=== PATIENT | male | born 2000 | race Caucasian/White ===

== ENCOUNTER 2024-04-08 20:12 | Inpatient (IN) | payer OTHER ==
[2024-04-08 20:35] VITALS: BMI 23.7
[2024-04-08] MEDS ORDERED: NICOTINE POLACRILEX 4 MG GUM BUC PRN (21:27)
[2024-04-08] MEDS ORDERED: MAGNESIUM HYDROX 2400MG/30ML ORAL SUSPENSION 30 ML CUP PO PRN (21:27)
[2024-04-08] MEDS ORDERED: BENZOCAINE/MENTHOL (CHLORASEPTIC ) LOZENGE MM PRN (21:27)
[2024-04-08] MEDS ORDERED: BISMUTH SUBSALICYLATE 524 MG/30 ML PO PRN (21:27)
[2024-04-08] MEDS ORDERED: ONDANSETRON *ODT* 4 MG TABLET SL PRN (21:27)
[2024-04-08] MEDS ORDERED: guaiFENesin 600 MG TABLET.ER (FP) PO PRN (21:27)
[2024-04-08] MEDS ORDERED: LOPERAMIDE HCL 2 MG CAPSULE PO PRN (21:27)
[2024-04-08] MEDS ORDERED: DICYCLOMINE HCL 10 MG CAPSULE PO PRN (21:27)
[2024-04-08] MEDS ORDERED: NALOXONE (NARCAN) HCL 4 MG/0.1 ML SPRAY NS PRN (21:27)
[2024-04-08] MEDS ORDERED: POLYETHYLENE GLYCOL (HEALTHYLAX) 3350 17 GM PACKET PO PRN (21:27)
[2024-04-08] MEDS ORDERED: BENZONATATE 200 MG CAPSULE PO PRN (21:27)
[2024-04-08] MEDS ORDERED: ACETAMINOPHEN 325 MG TABLET (FP) PO PRN (21:27)
[2024-04-08] MEDS ORDERED: NALOXONE HCL 0.4 MG/ML VIAL IM PRN (21:27)
[2024-04-08] MEDS ORDERED: MAG HYDROX/AL HYDROX/SIMETH 30 ML UNIT-DOSE CUP PO PRN (21:27)
[2024-04-08] MEDS: CEPHALEXIN MONOHYDRATE 500 MG CAPSULE (UD) PO SCH (22:48)
[2024-04-08] MEDS: THIAMINE 100 MG TABLET PO SCH (22:48)
[2024-04-09] MEDS: PRENATAL VITAMINS W/ FOLIC ACID TABLET (FP) PO SCH (10:20)
[2024-04-09] MEDS: chlordiazePOXIDE HCL 25 MG CAPSULE PO SCH (10:20)
[2024-04-09] MEDS: NICOTINE 21 MG/24 HOURS TOPICAL PATCH TD SCH (10:26)
[2024-04-09] MEDS: methaDONE HCL 10 MG TABLET PO ONE (11:03)
[2024-04-09] MEDS: FLUoxetine HCL 10 MG TABLET PO SCH (12:30)
[2024-04-09] MEDS: cloNIDine HCL 0.1 MG TABLET PO SCH (14:45)
[2024-04-09] MEDS: QUEtiapine FUMARATE 200 MG TABLET PO SCH (22:25)
[2024-04-09] MEDS: IBUPROFEN 400 MG TABLET (FP) PO PRN (23:08)
[2024-04-09] MEDS: methaDONE HCL 10 MG TABLET PO PRN (23:09)
[2024-04-10] MEDS: methaDONE 40 MG, methaDONE 10 MG PO ONE (10:00)
[2024-04-10] MEDS: IBUPROFEN 600 MG TABLET (FP) PO PRN (10:01)
[2024-04-10] MEDS: chlordiazePOXIDE HCL 25 MG CAPSULE PO SCH (10:06)
[2024-04-10] MEDS: BENZOCAINE 20 % GEL TUBE MM PRN (10:21)
[2024-04-10] MEDS: chlordiazePOXIDE HCL 25 MG CAPSULE PO PRN (14:57)
[2024-04-11] MEDS: methaDONE 40 MG, methaDONE 20 MG PO ONE (10:19)
[2024-04-11] MEDS: chlordiazePOXIDE HCL 10 MG CAPSULE PO SCH (10:23)
[2024-04-12] MEDS: chlordiazePOXIDE HCL 10 MG CAPSULE PO SCH (05:59)
[2024-04-12] MEDS: methaDONE 40 MG, methaDONE 30 MG PO ONE (09:07)
[2024-04-12] MEDS: chlordiazePOXIDE HCL 10 MG CAPSULE PO PRN (09:11)
[2024-04-12 14:59] LABS: HEMATOCRIT 38.1 % (35.4-49); HEMOGLOBIN 12.2 GM/dL (11.7-16.9); MCH 26.8 pg (25.7-33.7); MCHC 32.1 g/dl (32.0-35.9); MEAN CELL VOLUME 83.5 fl (80-96); MEAN PLT VOLUME 7.9 fl (7.5-11.1); PLATELET COUNT 239 10^3/uL (134-434); POTASSIUM 4.6 mmol/L (3.5-5.1); RBC 4.56 M/mm3 (4.00-5.60); RDW 16.8 % (11.9-15.9); WHITE BLOOD COUNT 6.1 K/mm3 (4.0-10.0)
[2024-04-12 15:05] LABS: BLOOD UREA NITROGEN 21.6 mg/dL (7-18); CALCIUM 9.5 mg/dL (8.5-10.1)
[2024-04-12 15:09] LABS: CREATININE 0.9 mg/dL (0.55-1.3)
[2024-04-12 15:10] LABS: BILIRUBIN,TOTAL 0.8 mg/dL (0.2-1); TOT PROT 7.5 g/dl (6.4-8.2)
[2024-04-13] MEDS: chlordiazePOXIDE HCL 10 MG CAPSULE PO ONE ×2 (05:46→07:46)
[2024-04-13] MEDS: methaDONE HCL 40 MG DISPERSABLE TABLET PO ONE (07:06)
[2024-04-13 09:14] VITALS: BP 128/76; PULSE 98; RESP 16; TEMP 97.3
[2024-04-13] MEDS: FLUoxetine HCL 10 MG CAPSULE PO SCH (09:18)
[2024-04-13] MEDS ORDERED: methaDONE HCL 40 MG DISPERSABLE TABLET PO ONE (10:00)
[2024-04-14] MEDS ORDERED: methaDONE 80 MG, methaDONE 10 MG PO ONE (10:00)
== END 2024-04-13 10:49 | disposition home or self-care (01) | DRG 773 ==
LOC: YASAS 20:12 → Y6N 21:49
PROVIDERS: ADMIT Allergy & Immunology; ATTEND Surgery
PROC: HZ2ZZZZ Detoxification Services for Substance Abuse Treatment (ICD-10-PCS; principal; 2024-04-08)
DX: F11.23 Opioid dependence with withdrawal (principal); F10.230 Alcohol dependence with withdrawal, uncomplicated; F14.20 Cocaine dependence, uncomplicated; F13.20 Sedative, hypnotic or anxiolytic dependence, uncomplicated; F17.210 Nicotine dependence, cigarettes, uncomplicated; F19.280 Other psychoactive substance dependence with psychoactive substance-induced anxiety disorder; F25.1 Schizoaffective disorder, depressive type; F31.9 Bipolar disorder, unspecified; F19.24 Other psychoactive substance dependence with psychoactive substance-induced mood disorder; L03.115 Cellulitis of right lower limb
CPT/HCPCS: 36415; 80053; 80305; 80307; 85027; 86780; 87635; 93005; 93010

== ENCOUNTER 2024-04-14 16:33 | Inpatient (IN) | payer OTHER ==
[2024-04-14 17:40] VITALS: BMI 24.0
[2024-04-14] MEDS ORDERED: BISMUTH SUBSALICYLATE 524 MG/30 ML PO PRN (22:30)
[2024-04-14] MEDS ORDERED: NALOXONE (NARCAN) HCL 4 MG/0.1 ML SPRAY NS PRN (22:30)
[2024-04-14] MEDS ORDERED: MAGNESIUM HYDROX 2400MG/30ML ORAL SUSPENSION 30 ML CUP PO PRN (22:30)
[2024-04-14] MEDS ORDERED: MAG HYDROX/AL HYDROX/SIMETH 30 ML UNIT-DOSE CUP PO PRN (22:30)
[2024-04-14] MEDS ORDERED: NICOTINE POLACRILEX 2 MG GUM BUC PRN (22:30)
[2024-04-14] MEDS ORDERED: LOPERAMIDE HCL 2 MG CAPSULE PO PRN (22:30)
[2024-04-14] MEDS ORDERED: guaiFENesin 600 MG TABLET.ER (FP) PO PRN (22:30)
[2024-04-14] MEDS ORDERED: ONDANSETRON *ODT* 4 MG TABLET SL PRN (22:30)
[2024-04-14] MEDS ORDERED: BENZONATATE 200 MG CAPSULE PO PRN (22:30)
[2024-04-14] MEDS ORDERED: POLYETHYLENE GLYCOL (HEALTHYLAX) 3350 17 GM PACKET PO PRN (22:30)
[2024-04-14] MEDS ORDERED: IBUPROFEN 400 MG TABLET (FP) PO PRN (22:30)
[2024-04-14] MEDS ORDERED: ACETAMINOPHEN 325 MG TABLET (FP) PO PRN (22:30)
[2024-04-14] MEDS ORDERED: BENZOCAINE/MENTHOL (CHLORASEPTIC ) LOZENGE MM PRN (22:30)
[2024-04-14] MEDS ORDERED: DICYCLOMINE HCL 10 MG CAPSULE PO PRN (22:30)
[2024-04-15] MEDS: NALOXONE (NYS OPIOID OVERDOSE PROGRAM) 4 MG/0.1 ML SPRAY NS ONE (00:38)
[2024-04-15] MEDS: NICOTINE 21 MG/24 HOURS TOPICAL PATCH TD SCH (09:51)
[2024-04-15] MEDS: hydrOXYzine PAMOATE 25 MG CAPSULE (FP) PO PRN (09:51)
[2024-04-15] MEDS: PRENATAL VITAMINS W/ FOLIC ACID TABLET (FP) PO SCH (09:52)
[2024-04-15] MEDS: IBUPROFEN 600 MG TABLET (FP) PO PRN (09:54)
[2024-04-15 10:17] LABS: HEMATOCRIT 34.5 % (35.4-49); HEMOGLOBIN 11.2 GM/dL (11.7-16.9); MCH 27.1 pg (25.7-33.7); MCHC 32.5 g/dl (32.0-35.9); MEAN CELL VOLUME 83.3 fl (80-96); MEAN PLT VOLUME 7.6 fl (7.5-11.1); PLATELET COUNT 224 10^3/uL (134-434); RBC 4.14 M/mm3 (4.00-5.60); RDW 16.7 % (11.9-15.9); WHITE BLOOD COUNT 6.4 K/mm3 (4.0-10.0)
[2024-04-15 11:10] LABS: CHLORIDE 104 mmol/L (98-107); POTASSIUM 4.1 mmol/L (3.5-5.1); SODIUM 140 mmol/L (136-145)
[2024-04-15 11:14] LABS: ALBUMIN 3.5 g/dl (3.4-5.0); ANION GAP 4 mmol/L (4-13); BLOOD UREA NITROGEN 20.4 mg/dL (7-18); CALCIUM 8.8 mg/dL (8.5-10.1); CO2 32 mmol/L (21-32)
[2024-04-15 11:15] LABS: GLUCOSE,RANDOM 99 mg/dL (74-106)
[2024-04-15 11:17] LABS: CREATININE 0.9 mg/dL (0.55-1.3); SGOT/AST 29 U/L (15-37); SGPT/ALT 20 U/L (13-61)
[2024-04-15 11:19] LABS: BILIRUBIN,TOTAL 0.4 mg/dL (0.2-1); TOT PROT 6.4 g/dl (6.4-8.2)
[2024-04-15 11:20] LABS: ALK PHOS 59 U/L (45-117)
[2024-04-15 12:44] VITALS: RESP 18
[2024-04-15] MEDS ORDERED: hydrOXYzine PAMOATE 25 MG CAPSULE (FP) PO PRN (12:57)
[2024-04-15] MEDS: FLUoxetine HCL 10 MG CAPSULE PO SCH (13:49)
[2024-04-15] MEDS: cloNIDine HCL 0.1 MG TABLET PO PRN (13:50)
[2024-04-15] MEDS: METHOCARBAMOL 500 MG TABLET PO PRN (16:05)
[2024-04-15 17:44] VITALS: BP 124/68; PULSE 83; TEMP 97.5
[2024-04-15] MEDS ORDERED: THIAMINE 100 MG TABLET PO SCH (22:00)
[2024-04-15] MEDS ORDERED: MELATONIN 5 MG TABLETS PO SCH (22:00)
[2024-04-15] MEDS ORDERED: QUEtiapine FUMARATE 200 MG TABLET PO SCH (22:00)
== END 2024-04-15 18:05 | disposition left against medical advice (07) | DRG 770 ==
LOC: YASAS 16:33 → Y6N 23:30
PROVIDERS: ADMIT Allergy & Immunology; ATTEND Surgery
PROC: HZ2ZZZZ Detoxification Services for Substance Abuse Treatment (ICD-10-PCS; principal; 2024-04-14)
DX: F10.230 Alcohol dependence with withdrawal, uncomplicated (principal); F11.20 Opioid dependence, uncomplicated; F14.20 Cocaine dependence, uncomplicated; F17.210 Nicotine dependence, cigarettes, uncomplicated; F31.9 Bipolar disorder, unspecified; F19.24 Other psychoactive substance dependence with psychoactive substance-induced mood disorder; D64.9 Anemia, unspecified; R79.89 Other specified abnormal findings of blood chemistry; Z56.0 Unemployment, unspecified; Z59.00 Homelessness unspecified
CPT/HCPCS: 36415; 80053; 80305; 80307; 85027; 86780; 93005; 93010